=== PATIENT | female | born 1970 | race Hispanic/Latino ===

== ENCOUNTER 2017-08-22 15:34 | Emergency (ER) | payer OTHER ==
[~2017-08-22] VITALS: Ht 167.6 cm; Wt 81.6 kg
[~2017-08-22 15:34] MED LIST: ACULAR 0.5%5 ML OPH; BACTRIM DS TAB1 EACH PO; IBUPROFEN800 M1 PO; POLYTRIM O200 GTT/BO OPH
--- NOTE | 2017-08-22 17:45 | ED UPPER/LOWER EXTREMITY COMPL ---
History of Present Illness General Chief Complaint: General Adult Stated Complaint: "HERE TO BE RECHEKED FOR CELLULITIS" PER PT Vital Signs & Intake/Output Vital Signs & Intake/Output Vital Signs Date Time Temp Pulse Resp B/P B/P Pulse O2 O2 Flow FiO2 Mean Ox Delivery Rate 08/22 1819 69 18 99/47 97 Room Air 08/22 1545 98.1 08/22 1540 98.1 85 18 113/70 99 Room Air Allergies Coded Allergies: NO KNOWN ALLERGIES (08/11/12) Reconcile Medications Ibuprofen 800 MG TABLET 1 TAB PO TID pain Sulfamethoxazole/Trimethoprim (Bactrim Ds Tablet) 800 MG-160 MG TABLET 1 TAB PO BID cellulitis Triage Note: 47F RETURNS FOR RECHECK OF CELLULITIS TO R THIGH/GROIN. APPEARS WORSENED AND ?ABSCESS. HAS BEEN TAKING BACTRIM X3 DAYS WITH MOTRIN 800. AFEBRILE IN TRIAGE. AREA IS ERYTHEMATOUS, WARM, WITH NOTABLE HARD CENTER WITHOUT PUNCTUM. NO DRAINAGE FROM SITE. MARKED WITH PEN IN TRIAGE Past History Travel History Traveled to [place] past 21 day No Medical History Neurological: NONE EENT: NONE Cardiovascular: NONE Respiratory: NONE Gastrointestinal: NONE Hepatic: NONE Renal: NONE Musculoskeletal: NONE Psychiatric: NONE Endocrine: NONE Blood Disorders: NONE Cancer(s): NONE Surgical History Surgical History: non-contributory Psychosocial History What is your primary language Wallisian Tobacco Use: Never used Progress Plan of Care: Orders Procedure Date/time Status LACTIC ACID 08/23 2115 Active BLOOD CULTURE 08/23 1815 Active URINALYSIS 08/23 1815 Active LACTIC ACID 08/23 1815 Active COMPREHENSIVE METABOLIC PANEL 08/23 1815 Active CBC WITHOUT DIFFERENTIAL 08/23 1815 Active EKG 08/23 1815 Active Microbiology 08/22 1830 BLOOD: Blood Culture - RECD 08/22 181 BLOOD: Blood Culture - ORD Departure Departure Condition: Stable Referrals: Patient Has No Primary Care Dr (PCP/Family) Departure Forms: Customer Survey General Discharge Information
--- NOTE | 2017-08-22 19:03 | ED UPPER/LOWER EXTREMITY COMPL ---
History of Present Illness General Chief Complaint: General Adult Stated Complaint: "HERE TO BE RECHEKED FOR CELLULITIS" PER PT Source: patient Exam Limitations: no limitations Vital Signs & Intake/Output Vital Signs & Intake/Output Vital Signs Date Time Temp Pulse Resp B/P B/P Pulse O2 O2 Flow FiO2 Mean Ox Delivery Rate 08/22 1925 98.0 72 18 112/78 99 Room Air 08/22 1819 69 18 99/47 97 Room Air 08/22 1759 Room Air 08/22 1545 98.1 08/22 1540 98.1 85 18 113/70 99 Room Air ED Intake and Output 08/23 0000 08/22 1200 Intake Total Output Total Balance Patient 180 lb Weight Weight Reported by Patient Measurement Method Allergies Coded Allergies: NO KNOWN ALLERGIES (08/11/12) Reconcile Medications Amoxicillin 875 MG TABLET 1 TAB PO BID abscess/cellulitis Ibuprofen 800 MG TABLET 1 TAB PO TID pain Sulfamethoxazole/Trimethoprim (Bactrim Ds Tablet) 800 MG-160 MG TABLET 1 TAB PO BID cellulitis Triage Note: 47F RETURNS FOR RECHECK OF CELLULITIS TO R THIGH/GROIN. APPEARS WORSENED AND ?ABSCESS. HAS BEEN TAKING BACTRIM X3 DAYS WITH MOTRIN 800. AFEBRILE IN TRIAGE. AREA IS ERYTHEMATOUS, WARM, WITH NOTABLE HARD CENTER WITHOUT PUNCTUM. NO DRAINAGE FROM SITE. MARKED WITH PEN IN TRIAGE Triage Nurses Notes Reviewed? yes Onset: Abrupt Duration: day(s):, constant, continues in ED Timing: recent history Severity: moderate, severe Pain/Injury Location: Right: Leg. No Modifying Factors: none HPI: 47-year-old female comes into the emergency room for further evaluation of wound check. Patient reports she was seen here the other day. She was started on Bactrim. She had a cellulitis to her right inner thigh. She reports that the redness is still there. She reports that there is been increased swelling to the Center. She has a history of abscesses. Denies any fever chills vomiting. Denies any other associated symptoms. (Pete Dawkins) Past History Travel History Traveled to [place] past 21 day No Medical History Any Pertinent Medical History? see below for history Neurological: NONE EENT: NONE Cardiovascular: NONE Respiratory: NONE Gastrointestinal: NONE Hepatic: NONE Renal: NONE Musculoskeletal: NONE Psychiatric: NONE Endocrine: NONE Blood Disorders: NONE Cancer(s): NONE Surgical History Surgical History: non-contributory Psychosocial History What is your primary language [place] Tobacco Use: Never used Family History Hx Contributory? No (Pete Dawkins) Review of Systems Review of Systems Constitutional: Reports: see HPI. EENTM: Reports: no symptoms. Respiratory: Reports: no symptoms. Cardiovascular: Reports: no symptoms. Gastrointestinal/Abdominal: Reports: no symptoms. Genitourinary: Reports: no symptoms. Musculoskeletal: Reports: no symptoms. Skin: Reports: see HPI. Neurological/Psychological: Reports: no symptoms. Hematologic/Endocrine: Reports: no symptoms. Immunological: Reports: no symptoms. All Other Systems: Reviewed and Negative (Pete Dawkins) Physical Exam Physical Exam General Appearance: well developed/nourished, mild distress Head: atraumatic Eyes: Bilateral: normal appearance. Ears, Nose, Throat: normal ENT inspection, hearing grossly normal Neck: normal inspection Cardiovascular/Respiratory: no respiratory distress Back: normal inspection Leg Right: large erythematous patch right inner thigh, warm, well demarcated borders, center of fluctuance, no discharge, Neurologic/Tendon: normal sensation, normal motor functions, normal tendon functions, responds to pain, no evidence tendon injury, no pulse deficit Skin: intact, normal color, warm/dry Lymphatic: no anterior cervical lita (Pete Dawkins) Progress Differential Diagnosis: cellulitis, contusion, dislocation, DVT, septic arthritis, abscess Plan of Care: Orders Procedure Date/time Status EXTREMETIES CULTURE 08/22 1921 Active BLOOD CULTURE 08/23 1815 Active LACTIC ACID 08/23 1815 Complete COMPREHENSIVE METABOLIC PANEL 08/23 1815 Complete CBC WITHOUT DIFFERENTIAL 08/23 1815 Complete EKG 08/23 1815 Active Laboratory Tests 08/22/17 2116: Lactic Acid Cancelled 08/22/17 1839: Anion Gap 14, Estimated GFR 53 L, BUN/Creatinine Ratio 15.5, Glucose 102 H, Lactic Acid 0.9, Calcium 9.7, Total Bilirubin 0.3, AST 15, ALT 19, Alkaline Phosphatase 91, Total Protein 6.9, Albumin 4.1, Globulin 2.8, Albumin/Globulin Ratio 1.5, CBC w Diff NO MAN DIFF REQ, RBC 4.22, MCV 92.9, MCH 30.3, MCHC 32.6 L, RDW 13.1, MPV 7.3 L, Gran % 67.5, Lymphocytes % 25.1, Monocytes % 5.9, Eosinophils % 0.8, Basophils % 0.7, Absolute Granulocytes 9.3 H, Absolute Lymphocytes 3.5 H, Absolute Monocytes 0.8 H, Absolute Eosinophils 0.1, Absolute Basophils 0.1 08/22/171815: Urine Color Cancelled, Urine Clarity Cancelled, Urine pH Cancelled, Ur Specific [place] Cancelled, Urine Protein Cancelled, Urine Ketones Cancelled, Urine Nitrite Cancelled, Urine Bilirubin Cancelled, Urine Urobilinogen Cancelled, Ur Leukocyte Esterase Cancelled, Ur Microscopic Cancelled, Urine Hemoglobin Cancelled, Urine Glucose Cancelled Microbiology 08/22 1924 EXTREMITIE: Culture & Sensitivity - RECD 08/22 1924 EXTREMITIE: Gram Stain - RECD 08/22 1838 BLOOD: Blood Culture - RECD 08/22 1829 BLOOD: Blood Culture - RECD (Pete Dawkins) Departure Departure Disposition: HOME OR SELF CARE Condition: Stable Clinical Impression Primary Impression: Cellulitis and abscess of right leg Referrals: Patient Has No Primary Care Dr (PCP/Family) Additional Instructions: Continue taking Bactrim. Take amoxicillin as prescribed. Return in 2 days for packing removal. Return sooner if any fever chills spreading of redness or any other concerns worsening symptoms. Please go over all results of today's visit with your primary care doctor. Contact your primary care doctor to let them know you were here in the emergency room. There may be nonspecific findings which may not be related to your visit today here in the emergency room but may require further evaluation and chronic monitoring by your primary care doctor. If you had a laceration today the chance of foreign body always remains. You should follow-up with your primary care doctor for recheck in 3-5 days for a wound check. If you had an x-ray done there is a chance that a fracture could have been missed on initial read and you should follow-up with your primary care doctor for repeat x-rays if symptoms persist. If your blood pressure was elevated here in the emergency room please have rechecked by [facility] primary care doctor within the next 48. If you were prescribed a narcotic here in the emergency room or any type of controlled substances you're not allowed to drive while taking this medication or operate any type of heavy machinery. Narcotics can make you feel lightheaded dizziness nausea and can cause constipation. You may need to cloth picker a stool softener. Thank you for choosing [facility] emergency room. Please return to the emergency room immediately if you have any other concerns worsening of symptoms. Departure Forms: Customer Survey General Discharge Information Prescriptions: Current Visit Scripts Amoxicillin 1 TAB PO BID #14 TAB Comments 08/22/2017 8:24:43 PM Patient is nontoxic-appearing. Afebrile. Clinically looks well. I feel that now the fact that the incision and drainage was performed she can be continued on oral antibiotics and come back for a wound check in a few days. She was instructed to return immediately if any worsening symptoms and at that time would require IV antibiotics and admission. (Pete Dawkins) PA/RIDE ASSEMBLY SUPERVISOR Co-Sign Statement Statement: ED Attending supervision documentation- [] I saw and evaluated the patient. I have also reviewed all the pertinent lab results and diagnostic results. I agree with the findings and the plan of care as documented in the PA's/RIDE ASSEMBLY SUPERVISOR's documentation. [X] I have reviewed the ED Record and agree with the PA's/RIDE ASSEMBLY SUPERVISOR's documentation. [] Additions or exceptions (if any) to the PAs/RIDE ASSEMBLY SUPERVISOR's note and plan are summarized below: [] (Luis YORK,Gabriel Carter) Procedures Incision and Drainage Site: right thigh Blade Size: 11 I & D Procedure: Yes: betadine prep, sterile drapes applied, sterile dressing applied, wick placed. Progress: 1% lidocaine with epinephrine, 4 mL injected, performed by PA student with my supervision, white purulent discharge on initial incision, (Pete Dawkins)
[2017-08-22 19:04] LABS: ABSOLUTE BASOPHIL COUNT 0.1 /CUMM (0.0-0.2); ABSOLUTE EOSINOPHIL COUNT 0.1 /CUMM (0.0-0.7); ABSOLUTE GRANULOCYTE CT 9.3 /CUMM (1.4-6.5); ABSOLUTE LYMPH COUNT 3.5 /CUMM (1.2-3.4); ABSOLUTE MONOCYTE COUNT 0.8 /CUMM (0.10-0.60); BASOPHIL % 0.7 % (0.0-2.0); EOSINOPHIL % 0.8 % (0-5); GRANULOCYTE % 67.5 % (42.2-75.2); HEMATOCRIT 39.2 % (37-47); MEAN CORPUSCULAR HGB 30.3 PG (27.0-31.0); MEAN CORPUSCULAR HGB CONC 32.6 G/DL (33.0-37.0); MEAN CORPUSCULAR VOLUME 92.9 FL (81.0-99.0); MEAN PLATELET VOLUME 7.3 FL (7.4-10.4); PLATELET COUNT 577 /CUMM (130-400); RBC DISTRIBUTION WIDTH 13.1 % (11.5-14.5); RED BLOOD CELL CT 4.22 /CUMM (4.20-5.40); WHITE BLOOD CELL COUNT 13.8 /CUMM (4.8-10.8)
[2017-08-22] MEDS ORDERED: AMOXICILLIN875 M1 PO (19:21)
[2017-08-22 19:25] VITALS: BP 112/78
== END 2017-08-22 19:32 ==
LOC: ERH 15:34
PROVIDERS: Physician Assistant
DX: Z48.01 Encounter for change or removal of surgical wound dressing (principal)
CPT/HCPCS: 87040; 87070; 93005; 93010; 99281

== ENCOUNTER 2017-08-26 14:07 | Emergency (ER) | payer OTHER ==
[~2017-08-26] VITALS: Ht 167.6 cm; Wt 81.6 kg
[~2017-08-26 14:07] MED LIST changes: +AMOXICILLIN875 M1 PO
--- NOTE | 2017-08-26 16:45 | ED ANIMAL BITE/WOUND CHECK ---
History of Present Illness General Chief Complaint: Suture Removal/Wound Recheck Stated Complaint: WOUND CHECK Source: patient Exam Limitations: no limitations Vital Signs & Intake/Output Vital Signs & Intake/Output Vital Signs Date Time Temp Pulse Resp B/P B/P Pulse O2 O2 Flow FiO2 Mean Ox Delivery Rate 08/26 1651 97.6 81 18 102/64 98 Room Air 08/26 1649 97 Room Air 08/26 1431 97.9 78 20 105/69 97 Room Air Allergies Coded Allergies: NO KNOWN ALLERGIES (08/11/12) Reconcile Medications Amoxicillin 875 MG TABLET 1 TAB PO BID abscess/cellulitis Ibuprofen 800 MG TABLET 1 TAB PO TID pain Sulfamethoxazole/Trimethoprim (Bactrim Ds Tablet) 800 MG-160 MG TABLET 1 TAB PO BID cellulitis Sulfamethoxazole/Trimethoprim (Bactrim Ds Tablet) 800 MG-160 MG TABLET 1 TAB PO BID ABSCESS Triage Note: WOUND CHECK FOR ABSCESS THAT WAS i&D LAST SATURDAY. PT STATES IT FEELS A LITTLE BETTER Triage Nurses Notes Reviewed? yes Onset: Abrupt Duration: day(s): Timing: recent history No Modifying Factors: none HPI: 47-year-old female comes into the emergency room for further evaluation of wound check. Patient was supposed to return on Saturday for packing removal but couldn't make it. She had an incision and drainage done to her right inner leg. She denies any fever chills. Improvement in pain and redness. Comes in for further evaluation and wound check. Past History Travel History Traveled to [place] past 21 day No Medical History Any Pertinent Medical History? none Neurological: NONE EENT: NONE Cardiovascular: NONE Respiratory: NONE Gastrointestinal: NONE Hepatic: NONE Renal: NONE Musculoskeletal: NONE Psychiatric: NONE Endocrine: NONE Blood Disorders: NONE Cancer(s): NONE Surgical History Surgical History: non-contributory Psychosocial History What is your primary language Yemeni Tobacco Use: Current Daily Use Daily Tobacco Use Amount/Type: => 5 Cigarettes daily ETOH Use: occasional use Illicit Drug Use: denies illicit drug use Family History Hx Contributory? No Review of Systems Review of Systems Constitutional: Reports: no symptoms. EENTM: Reports: no symptoms. Respiratory: Reports: no symptoms. Cardiovascular: Reports: no symptoms. GI: Reports: no symptoms. Genitourinary: Reports: no symptoms. Musculoskeletal: Reports: no symptoms. Skin: Reports: see HPI. Neurological/Psychological: Reports: no symptoms. Hematologic/Endocrine: Reports: no symptoms. Immunologic/Allergic: Reports: no symptoms. All Other Systems: Reviewed and Negative Physical Exam Physical Exam General Appearance: well developed/nourished, mild distress Head: atraumatic Eyes: Bilateral: normal appearance. Ears, Nose, Throat: normal ENT inspection, hearing grossly normal Neck: normal inspection Respiratory: no respiratory distress Back: normal inspection Neurologic/Psych: awake, alert, oriented x 3, normal mood/affect Skin: normal color, warm/dry, no erythema to right inner thigh, some mild induration around site of abscess drainage, no drainage appreciated on exam, packing removed Progress Differential Diagnosis: abscess, cellulitis, joint infection, tenosysnovitis Plan of Care: 08/26/2017 5:10:50 PM Packing removed. Patient clinically looks well. Cellulitis improved. Abscess improved. Warm soaks. Follow-up with general surgeon provided for wound check. Continue antibiotics. Departure Departure Disposition: HOME OR SELF CARE Condition: Stable Clinical Impression Primary Impression: Encounter for abscess packing removal Referrals: Patient Has No Primary Care Dr (PCP/Family) Additional Instructions: Take Bactrim as prescribed. Continue hot compresses and warm compresses. Return if any other concerns worsening symptoms. Please go over all results of today's visit with your primary care doctor. Contact your primary care doctor to let them know you were here in the emergency room. There may be nonspecific findings which may not be related to your visit today here in the emergency room but may require further evaluation and chronic monitoring by your primary care doctor. If you had a laceration today the chance of foreign body always remains. You should follow-up with your primary care doctor for recheck in 3-5 days for a wound check. If you had an x-ray done there is a chance that a fracture could have been missed on initial read and you should follow-up with your primary care doctor for repeat x-rays if symptoms persist. If your blood pressure was elevated here in the emergency room please have rechecked by [facility] primary care doctor within the next 48. If you were prescribed a narcotic here in the emergency room or any type of controlled substances you're not allowed to drive while taking this medication or operate any type of heavy machinery. Narcotics can make you feel lightheaded dizziness nausea and can cause constipation. You may need to waste picker a stool softener. Thank you for choosing [facility] emergency room. Please return to the emergency room immediately if you have any other concerns worsening of symptoms. Departure Forms: Customer Survey General Discharge Information Prescriptions: Current Visit Scripts Sulfamethoxazole/Trimethoprim (Bactrim Ds Tablet) 1 TAB PO BID #10 TAB
[2017-08-26] MEDS ORDERED: BACTRIM DS TAB1 EACH PO (16:47)
[2017-08-26 16:51] VITALS: BP 102/64
== END 2017-08-26 16:56 ==
LOC: ERH 14:07
DX: Z48.00 Encounter for change or removal of nonsurgical wound dressing (principal)